=== PATIENT | female | born 1950 | race Hispanic/Latino ===

== ENCOUNTER 2017-05-16 06:02 | Inpatient (IN) | payer MEDICARE ==
[2017-05-10 10:13] VITALS: BMI 34.2
[2017-05-16] MEDS ORDERED: Bupivacaine HCl 0.25% PF (30 ml) Inj ONE (07:09)
[2017-05-16] MEDS ORDERED: ePHEDrine 50 mg/ml Inj ONE (07:09)
[2017-05-16] MEDS ORDERED: Propofol 10 mg/ml Inj (20 ML) ONE ×2 (07:09→09:02)
[2017-05-16] MEDS ORDERED: Absorbable Gelatin Sponge Size 12-7 ONE (07:09)
[2017-05-16] MEDS ORDERED: Succinylcholine 200 mg/10 ml Inj IV ONE (07:09)
[2017-05-16] MEDS ORDERED: Thrombin Topical 5,000 IU Spray Kit ONE (07:09)
[2017-05-16] MEDS ORDERED: Phenylephrine 10 mg/ml Inj ONE (07:09)
[2017-05-16] MEDS ORDERED: Rocuronium 10 mg/ml (5 ml) ONE (07:09)
[2017-05-16] MEDS ORDERED: Midazolam 2 MG/2 ML VIAL ONE (07:09)
[2017-05-16] MEDS ORDERED: Lidocaine 2% w Epi 1:100,000 Inj IJ ONE (07:09)
--- NOTE | 2017-05-16 07:37 | CP.PCM.CON ---
History of Present Illness - History of Present Illness History of Present Illness: 67 yo female with LBP radiating to LLE with weakness and paresthesias,ambulates holding on,difficulty standing, no relief with therapy,pain meds or epidural injection x 4,prior lumbar laminectomy L3-L5 with some resolution in her prior symptoms,Out pt MRI showing compression of thecal sac at L5,denies bowel/ bladder incontinance,pelvic paresthesias or foot drop. Review of Systems - Review of Systems Systems not reviewed;Unavailable: Acuity of Condition - Cardiovascular Additional comments: Hx Htn,denies angina,arrthymia or AR - Musculoskeletal Musculoskeletal: Muscle Weakness, Numbness, Radiating Pain into Limb - Integumentary Additional comments: healed surgical scar's - Neurological Neurological: As Per HPI - Endocrine Additional Comments: Hx Hypothyroidism Past Patient History - Infectious Disease Hx of Infectious Diseases: None - Tetanus Immunizations Tetanus Immunization: Unknown - Past Medical History & Family History Past Medical History?: Yes - Past Social History Smoking Status: Never Smoked Chewing Tobacco Use: No Cigar Use: No 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 Alcohol: None Drugs: Denies Home Situation {Lives}: With Family Domestic Violence: Negative - CARDIAC Hx Cardiac Disorders: Yes Hx Hypertension: Yes - PULMONARY Hx Respiratory Disorders: No - NEUROLOGICAL Hx Neurological Disorder: Yes - HEENT Hx HEENT Problems: Yes Other/Comment: BURNING FEET - RENAL Hx Chronic Kidney Disease: No - ENDOCRINE/METABOLIC Hx Endocrine Disorders: Yes Hx Diabetes Mellitus Type 2: Yes Hx Hypothyroidism: Yes - HEMATOLOGICAL/ONCOLOGICAL Hx Blood Disorders: No - INTEGUMENTARY Hx Dermatological Problems: No - MUSCULOSKELETAL/RHEUMATOLOGICAL Hx Musculoskeletal Disorders: Yes Hx Arthritis: Yes Hx Back Pain: Yes - GASTROINTESTINAL Hx Gastrointestinal Disorders: No - GENITOURINARY/GYNECOLOGICAL Hx Genitourinary Disorders: No - PSYCHIATRIC Hx Psychophysiologic Disorder: No - SURGICAL HISTORY Hx Surgeries: Yes Hx Tonsillectomy: Yes Other/Comment: EPIDUAL INJECTION .LUMBAR LAMINECTOMY DEC 2016 - ANESTHESIA Hx Anesthesia: Yes Hx Anesthesia Reactions: No Hx Malignant Hyperthermia: No Has any member of the family had a problem w/ anesthesia?: No Meds Allergies/Adverse Reactions: Allergies Allergy/AdvReac Type Severity Reaction Status Date / Time No Known Allergies Allergy Verified 05/10/17 10:13 Physical Exam - Constitutional Appears: Well, Non-toxic, No Acute Distress - Head Exam Head Exam: ATRAUMATIC, NORMAL INSPECTION, NORMOCEPHALIC - Eye Exam Eye Exam: EOMI, Normal appearance, PERRL Pupil Exam: NORMAL ACCOMODATION - ENT Exam ENT Exam: Mucous Membranes Moist - Neck Exam Neck exam: Positive for: Normal Inspection - Respiratory Exam Respiratory Exam: Clear to Auscultation Bilateral, NORMAL BREATHING PATTERN - Cardiovascular Exam Cardiovascular Exam: REGULAR RHYTHM - GI/Abdominal Exam GI & Abdominal Exam: Soft - Rectal Exam Rectal Exam: Deferred - Extremities Exam Extremities exam: Positive for: normal capillary refill, pedal pulses present - Back Exam Back exam: paraspinal tenderness, vertebral tenderness - Neurological Exam Neurological exam: Alert, Oriented x3 Additional comments: CHOI x 4 antigravity with left mild dorsiflextion and plantar flexion weakness, decreased sensation to left posterior heal dermatome,depressed DTR's,+ lower L spine point tenderness,no pelvic paresthesias,foot drop or babinski noted - Psychiatric Exam Psychiatric exam: Normal Affect, Normal Mood - Skin Skin Exam: Dry, Intact Results - Vital Signs Recent Vital Signs: Last Vital Signs Temp 98.6 F 05/16/17 06:31 Pulse 83 05/16/17 06:34 Resp 18 05/16/17 06:31 BP 138/88 05/16/17 06:31 Pulse Ox 95 05/16/17 06:31 - Labs Labs: Laboratory Results - last 24 hr 05/16/17 07:02 POC Glucose (mg/dL) 137 H Assessment & Plan - Assessment and Plan (Free Text) Assessment: 67 yo female with Recurrent Lumbar Spondylosis,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
[2017-05-16] MEDS ORDERED: Lactated Ringer's 1,000 ML IV ONE ×2 (07:45→08:00)
[2017-05-16] MEDS ORDERED: HEMOSTATIC MATRIX 10 ML DIS.NEEDLE TOP ONE ×2 (08:13→08:55)
[2017-05-16] MEDS ORDERED: Bupivacaine HCl 0.25% PF (30 ml) Inj IJ ONE ×2 (08:14→09:00)
[2017-05-16] MEDS ORDERED: Neostigmine Methylsulfate 3mg/3ml Syringe IV ONE (08:39)
[2017-05-16] MEDS ORDERED: Neostigmine Methylsulfate 2 MG/2 ML ML IV ONE (08:39)
[2017-05-16] MEDS: HYDROmorphone 0.5 mg/0.5 ml ISec IVP PRN ×2 (09:27→10:35)
[2017-05-16] MEDS ORDERED: Benzocaine/Menthol (Cepacol) Lozenge PO PRN (11:53)
[2017-05-16] MEDS: Lactated Ringer's 1,000 ML IV SCH (11:56)
[2017-05-16] MEDS: Oxycodone/Acetaminophen 5/325 mg Tab PO PRN (15:01)
[2017-05-16] MEDS: ceFAZolin 1 GM in Sodium Chloride 0.9% 100 ML IVPB SCH (16:11)
[2017-05-17] MEDS: ceFAZolin 1 GM in Sodium Chloride 0.9% 100 ML IVPB SCH ×5 (00:46→17:37)
[2017-05-17] MEDS: Lactated Ringer's 1,000 ML IV SCH (00:47)
--- NOTE | 2017-05-17 01:57 | OP ---
DATE OF SURGERY: 05/16/2017 PREOPERATIVE DIAGNOSIS: Lumbar spondylolisthesis at L4-L5. POSTOPERATIVE DIAGNOSIS: Lumbar spondylolisthesis at L4-L5. PROCEDURE: L4-L5 lumbar laminectomy, decompression, L4-L5 posterolateral fusion. SURGEON: Marco A Vargas MD. CUSTOM BOOKBINDER: Lakeshia Short, physician purchasing assistant, who stayed throughout the case and she helped me perform the surgery. DESCRIPTION OF PROCEDURE: The patient was brought to the operating room, anesthetized with general endotracheal anesthesia, placed in a prone position on a Shiv table. Care was taken to protect all the pressure points. Back of the lumbar area thoroughly prepped and draped in standard sterile manner after marking for a skin incision for a lumbar laminectomy at L4-L5. After prepping and draping the area, the previous skin incision scar has been opened. Bleeding skins had been controlled with bipolar credit intern. After by using a Bovie credit intern, paraspinal muscles had been detached, attachments of spinous process, lamina of L5 and further exposure of L4 has been done. The previously noted laminotomy defect has been noted. The scar tissue has been removed. Further medial fasciectomy and laminectomy of L5 has been performed by using a fine Kerrison punch bone and ligamentum flavum that was left behind, as well as the scar tissue has been removed decompressing this area at L4-L5. After that, lateral aspect of the facet joint of L4-L5 had been decorticated, demineralized bone placed in the area achieving a posterolateral fusion. Hemostasis best achieved. Shiv drain placed on the wound and brought out through a separate stab neck skin incision. Muscles and fascia closed with 1 Vicryl, subcutaneous tissue with 3 Vicryl and skin had been closed with intradermal 3 Vicryl stitches. The patient tolerated the procedure. After procedure, mobilized to recovery room in stabilized condition. Marco A Rockwell MD
[2017-05-17] MEDS: Oxycodone/Acetaminophen 5/325 mg Tab PO PRN ×2 (04:04→15:01)
[2017-05-17] MEDS: Levothyroxine 25 MCG TAB PO SCH (06:22)
[2017-05-17] MEDS ORDERED: Oxycodone/Acetaminophen 5/325 mg Tab PO PRN (09:16)
[2017-05-17] MEDS: Enoxaparin 40 mg Syringe SC SCH (17:43)
[2017-05-18] MEDS: ceFAZolin 1 GM in Sodium Chloride 0.9% 100 ML IVPB SCH ×3 (00:50→08:48)
[2017-05-18 01:26] VITALS: O2SAT 95
[2017-05-18] MEDS: Levothyroxine 25 MCG TAB PO SCH (06:30)
[2017-05-18 07:24] LABS: HEMATOCRIT 33.3 % (34.0-47.0); MEAN CELL VOLUME 85.1 fl (81.0-99.0); MEAN CORPUSCULAR HEMOGLOBIN 28.5 pg (27.0-31.0); MEAN CORPUSCULAR HGB CONC 33.5 g/dL (33.0-37.0); RED CELL DISTRIBUTION WIDTH 14.8 % (11.5-14.5); WHITE BLOOD COUNT 6.6 K/uL (4.8-10.8)
[2017-05-18 07:59] LABS: BLOOD UREA NITROGEN 9 mg/dl (7-17); CALCIUM 8.8 mg/dL (8.4-10.2); CARBON DIOXIDE 28 mmol/L (22-30); CHLORIDE 101 mmol/L (98-107); GFR AFRICAN-AMERICAN > 60; GLUCOSE,RANDOM 131 mg/dL (65-105); POTASSIUM 3.6 MMOL/L (3.6-5.0); SODIUM 139 mmol/l (132-148)
[2017-05-18 08:25] VITALS: BP 119/83; PULSE 69; RESP 20; TEMP 99.2
[2017-05-18] MEDS: Oxycodone/Acetaminophen 5/325 mg Tab PO PRN ×2 (08:36→14:20)
[2017-05-18] MEDS: Enoxaparin 40 mg Syringe SC SCH (08:50)
--- NOTE | 2017-05-18 09:47 | CP.PCM.HP ---
History of Present Illness - History of Present Illness History of Present Illness: This is a 67 y/o female admitted for intractable pain despite conservative measures. She has lower back pain and had previous L3L4 laminectomy. Noted compression of thecal sac at L5. 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 Alcohol: None Drugs: Denies Home Situation {Lives}: With Family Domestic Violence: Negative - CARDIAC Hx Cardiac Disorders: Yes Hx Hypertension: Yes - PULMONARY Hx Respiratory Disorders: No - NEUROLOGICAL Hx Neurological Disorder: Yes - HEENT Hx HEENT Problems: Yes Other/Comment: BURNING FEET - RENAL Hx Chronic Kidney Disease: No - ENDOCRINE/METABOLIC Hx Endocrine Disorders: Yes Hx Diabetes Mellitus Type 2: Yes Hx Hypothyroidism: Yes - HEMATOLOGICAL/ONCOLOGICAL Hx Blood Disorders: No - INTEGUMENTARY Hx Dermatological Problems: No - MUSCULOSKELETAL/RHEUMATOLOGICAL Hx Musculoskeletal Disorders: Yes Hx Arthritis: Yes Hx Back Pain: Yes - GASTROINTESTINAL Hx Gastrointestinal Disorders: No - GENITOURINARY/GYNECOLOGICAL Hx Genitourinary Disorders: No - PSYCHIATRIC Hx Psychophysiologic Disorder: No - SURGICAL HISTORY Hx Surgeries: Yes Hx Tonsillectomy: Yes Other/Comment: EPIDUAL INJECTION .LUMBAR LAMINECTOMY DEC 2016 - ANESTHESIA Hx Anesthesia: Yes Hx Anesthesia Reactions: No Hx Malignant Hyperthermia: No Has any member of the family had a problem w/ anesthesia?: No Meds Allergies/Adverse Reactions: Allergies Allergy/AdvReac Type Severity Reaction Status Date / Time No Known Allergies Allergy Verified 05/10/17 10:13 Results - Vital Signs Recent Vital Signs: Last Vital Signs Temp 99.2 F 05/18/17 08:24 Pulse 69 05/18/17 08:49 Resp 20 05/18/17 08:24 BP 119/83 05/18/17 08:49 Pulse Ox 95 05/18/17 08:24 - Labs Result Diagrams: 05/18/17 06:40 05/18/17 06:40 Labs: Laboratory Results - last 24 hr 05/17/17 05/17/17 05/17/17 10:53 16:26 21:20 WBC RBC Hgb Hct MCV MCH MCHC RDW Plt Count Sodium Potassium Chloride Carbon Dioxide Anion Gap BUN Creatinine Est GFR ( Amer) Est GFR (Non-Af Amer) POC Glucose (mg/dL) 152 H 207 H 159 H Random Glucose Calcium 05/18/17 05/18/17 05/18/17 05:47 06:40 06:40 WBC 6.6 RBC 3.92 Hgb 11.2 L Hct 33.3 L MCV 85.1 MCH 28.5 MCHC 33.5 RDW 14.8 H Plt Count 156 Sodium 139 Potassium 3.6 Chloride 101 Carbon Dioxide 28 Anion Gap 14 BUN 9 Creatinine 0.6 L Est GFR ( Amer) > 60 Est GFR (Non-Af Amer) > 60 POC Glucose (mg/dL) 149 H Random Glucose 131 H Calcium 8.8
--- NOTE | 2017-05-18 09:50 | CP.PCM.PN ---
Subjective - Date & Time of Evaluation Date of Evaluation: 05/17/17 Time of Evaluation: 10:00 - Subjective Subjective: Patient complains of constipation and pain on the op area. Has no fever. Has poor appetite Objective - Vital Signs/Intake and Output Vital Signs (last 24 hours): Temp Pulse Resp BP Pulse Ox 99.2 F 69 20 119/83 95 05/18/17 08:24 05/18/17 08:49 05/18/17 08:24 05/18/17 08:49 05/18/17 08:24 Intake and Output: 05/18/17 05/18/17 06:59 18:59 Intake Total 100 Output Total 20 Balance 80 - Medications Medications: Current Medications Benzocaine/Menthol (Cepacol Sore Throat) 1 geraldine PO Q3 PRN PRN Reason: Sore Throat Last Admin: 05/16/17 16:10 Dose: 1 geraldine Cholecalciferol (Vitamin D) 1,000 iu PO DAILY [facility] Last Admin: 05/18/17 08:50 Dose: 1,000 iu Cyclobenzaprine HCl (Flexeril) 5 mg PO TID PRN PRN Reason: Muscle spasm Last Admin: 05/18/17 08:50 Dose: 5 mg Docusate Sodium (Colace) 100 mg PO BID [facility] Last Admin: 05/18/17 08:48 Dose: 100 mg Enoxaparin Sodium (Lovenox) 40 mg SC DAILY [facility] PRN Reason: Protocol Last Admin: 05/18/17 08:50 Dose: 40 mg Cefazolin Sodium 1 gm/ Sodium (Chloride) 100 mls @ 100 mls/hr IVPB Q8 [facility] Last Admin: 05/18/17 08:48 Dose: Not Given Levothyroxine Sodium (Synthroid) 25 mcg PO DAILY@0630 [facility] Last Admin: 05/18/17 06:30 Dose: 25 mcg Losartan Potassium (Cozaar) 100 mg PO DAILY [facility] Last Admin: 05/18/17 08:49 Dose: 100 mg Metformin HCl (Glucophage) 500 mg PO DAILY [facility] Last Admin: 05/18/17 08:50 Dose: 500 mg Morphine Sulfate (Morphine) 2 mg IVP Q4 PRN PRN Reason: Pain, severe (8-10) Ondansetron HCl (Zofran Inj) 4 mg IVP Q6 PRN PRN Reason: Nausea/Vomiting Oxycodone/Acetaminophen (Percocet 5/325 Mg Tab) 2 tab PO Q4 PRN PRN Reason: Pain, moderate (4-7) Stop: 05/19/17 10:19 Last Admin: 05/18/17 08:36 Dose: 2 tab Oxycodone/Acetaminophen (Percocet 5/325 Mg Tab) 1 tab PO Q4 PRN PRN Reason: Pain, Mild (1-3) Stop: 05/20/17 09:17 - Labs Labs: 05/18/17 06:40 05/18/17 06:40
--- NOTE | 2017-05-18 09:53 | CP.PCM.DIS ---
Provider - Provider Date of Admission: 05/16/17 11:05 Attending physician: Marquez Hopkins MD Primary care physician: Marco A Rockwell MD Hospital Course - Lab Results Lab Results: Most Recent Lab Values WBC 6.6 K/uL (4.8-10.8) 05/18/17 06:40 RBC 3.92 Mil/uL (3.80-5.20) 05/18/17 06:40 Hgb 11.2 g/dL (12.0-16.0) L 05/18/17 06:40 Hct 33.3 % (34.0-47.0) L 05/18/17 06:40 MCV 85.1 fl (81.0-99.0) 05/18/17 06:40 MCH 28.5 pg (27.0-31.0) 05/18/17 06:40 MCHC 33.5 g/dL (33.0-37.0) 05/18/17 06:40 RDW 14.8 % (11.5-14.5) H 05/18/17 06:40 Plt Count 156 K/uL (130-400) 05/18/17 06:40 Sodium 139 mmol/l (132-148) 05/18/17 06:40 Potassium 3.6 MMOL/L (3.6-5.0) 05/18/17 06:40 Chloride 101 mmol/L (98-107) 05/18/17 06:40 Carbon Dioxide 28 mmol/L (22-30) 05/18/17 06:40 Anion Gap 14 (10-20) 05/18/17 06:40 BUN 9 mg/dl (7-17) 05/18/17 06:40 Creatinine 0.6 mg/dL (0.7-1.2) L 05/18/17 06:40 Est GFR ( Amer) > 60 05/18/17 06:40 Est GFR (Non-Af Amer) > 60 05/18/17 06:40 POC Glucose (mg/dL) 149 mg/dL (65-110) H 05/18/17 05:47 Random Glucose 131 mg/dL (65-105) H 05/18/17 06:40 Calcium 8.8 mg/dL (8.4-10.2) 05/18/17 06:40 - Hospital Course Hospital Course: This is a 67 y/o female admitted for L4L5 laminectomy. Had an intractable pain in the LS area with radiculopathy. Discharge Exam - Head Exam Head Exam: ATRAUMATIC, NORMAL INSPECTION, NORMOCEPHALIC Discharge Plan - Follow Up Plan Condition: GOOD Disposition: HOME/ ROUTINE Referrals: Marco A Rockwell MD [Primary Care Provider] -
--- NOTE | 2017-05-18 14:45 | RAD ---
PROCEDURE: Intraoperative Fluoroscopy. HISTORY: LUMBAR LAMINECTOMY FINDINGS: Fluoroscopic assistance was provided. 12.3 seconds fluoroscopy time early utilized during this procedure. Radiation dose = 7.06 mGy
--- NOTE | 2017-05-18 15:09 | CP.PCM.PN ---
Subjective - Date & Time of Evaluation Date of Evaluation: 05/18/17 Time of Evaluation: 07:30 - Subjective Subjective: pt c/o incisional pain,LLE symptoms improved,amb with walking with minimal asst, pain controlled with PO pain meds,danny diet,voiding + BM today,PEMA output 20 cc in 24 hours,+ anxiety self relieved,no pelvic paresthesias,Bowel/bladder incontinance,CP or SOB Objective - Vital Signs/Intake and Output Vital Signs (last 24 hours): Temp Pulse Resp BP Pulse Ox 99.2 F 69 20 119/83 95 05/18/17 08:24 05/18/17 08:49 05/18/17 08:24 05/18/17 08:49 05/18/17 08:24 Intake and Output: 05/18/17 05/18/17 06:59 18:59 Intake Total 100 Output Total 20 Balance 80 - Medications Medications: Current Medications Benzocaine/Menthol (Cepacol Sore Throat) 1 geraldine PO Q3 PRN PRN Reason: Sore Throat Last Admin: 05/16/17 16:10 Dose: 1 geraldine Cholecalciferol (Vitamin D) 1,000 iu PO DAILY [facility] Last Admin: 05/18/17 08:50 Dose: 1,000 iu Cyclobenzaprine HCl (Flexeril) 5 mg PO TID PRN PRN Reason: Muscle spasm Last Admin: 05/18/17 08:50 Dose: 5 mg Docusate Sodium (Colace) 100 mg PO BID [facility] Last Admin: 05/18/17 08:48 Dose: 100 mg Enoxaparin Sodium (Lovenox) 40 mg SC DAILY [facility] PRN Reason: Protocol Last Admin: 05/18/17 08:50 Dose: 40 mg Cefazolin Sodium 1 gm/ Sodium (Chloride) 100 mls @ 100 mls/hr IVPB Q8 [facility] Last Admin: 05/18/17 08:48 Dose: Not Given Lactulose (Enulose) 20 gm PO DAILY PRN PRN Reason: Constipation Levothyroxine Sodium (Synthroid) 25 mcg PO DAILY@0630 [facility] Last Admin: 05/18/17 06:30 Dose: 25 mcg Losartan Potassium (Cozaar) 100 mg PO DAILY [facility] Last Admin: 05/18/17 08:49 Dose: 100 mg Metformin HCl (Glucophage) 500 mg PO DAILY [facility] Last Admin: 05/18/17 08:50 Dose: 500 mg Morphine Sulfate (Morphine) 2 mg IVP Q4 PRN PRN Reason: Pain, severe (8-10) Ondansetron HCl (Zofran Inj) 4 mg IVP Q6 PRN PRN Reason: Nausea/Vomiting Oxycodone/Acetaminophen (Percocet 5/325 Mg Tab) 2 tab PO Q4 PRN PRN Reason: Pain, moderate (4-7) Stop: 05/19/17 10:19 Last Admin: 05/18/17 14:20 Dose: 2 tab Oxycodone/Acetaminophen (Percocet 5/325 Mg Tab) 1 tab PO Q4 PRN PRN Reason: Pain, Mild (1-3) Stop: 05/20/17 09:17 - Labs Labs: 05/18/17 06:40 05/18/17 06:40 - Constitutional Appears: Well, Non-toxic, No Acute Distress - Head Exam Head Exam: ATRAUMATIC, NORMAL INSPECTION, NORMOCEPHALIC - Eye Exam Eye Exam: EOMI, Normal appearance, PERRL - ENT Exam ENT Exam: Mucous Membranes Moist - Neck Exam Neck Exam: Normal Inspection - Respiratory Exam Respiratory Exam: Clear to Ausculation Bilateral - Cardiovascular Exam Cardiovascular Exam: REGULAR RHYTHM, +S1, +S2 - GI/Abdominal Exam GI & Abdominal Exam: Soft - Rectal Exam Rectal Exam: Deferred Additional comments: no pelvic paresthesias - Extremities Exam Extremities Exam: Normal Capillary Refill, Normal Inspection Additional comments: calves soft/NT - Back Exam Additional comments: wound C/D/I,drain removed,dressing changed,abdominal binder in use - Neurological Exam Neurological Exam: Alert, Oriented x3 Additional comments: CHOI x 4 antigravity with good strength,no sensory deficit noted - Psychiatric Exam Psychiatric exam: Normal Affect, Normal Mood - Skin Skin Exam: Dry, Intact Assessment and Plan - Assessment and Plan (Free Text) Assessment: 67 yo female POD#2 Decompressive Laminectomy L4-5,neurologically stable Plan: pt being d/c home today with visiting nurse and outpt PT,pain meds,f/u appt 05/[address] Rockwell at 11am,daily dressing changes with gauze and tape,use abdominal binder daily,may shower in 3 day's,keep incision clean and dry,resume previous meds,f/u PMD in 1 week,all d/w Dr. Rockwell
== END 2017-05-18 15:06 | disposition home health service (06) | DRG 460 ==
LOC: H.OPSURG 06:02 → H.TEL 11:05 → H.MEDSURG1 05-17 15:41
PROVIDERS: ADMIT Family Medicine; ATTEND Family Medicine
PROC: 0SG00K1 Fusion of Lumbar Vertebral Joint with Nonautologous Tissue Substitute, Posterior Approach, Posterior Column, Open Approach (ICD-10-PCS; principal; 2017-05-16 07:45)
DX: M43.16 Spondylolisthesis, lumbar region (principal); I10 Essential (primary) hypertension; E03.9 Hypothyroidism, unspecified; E11.9 Type 2 diabetes mellitus without complications; K59.00 Constipation, unspecified; M54.16 Radiculopathy, lumbar region